=== PATIENT | female | born 1955 | race American Indian/Alaskan Native ===

== ENCOUNTER 2019-07-15 09:04 | Day surgery (SDC) | payer OTHER ==
[~2019-07-15 09:04] MED LIST: SODIUM CHLORIDE 0.9% 1000 ML 1,000 ML IV SCH
--- NOTE | 2019-07-15 11:09 | Anesthesia Day of Surgery ---
Anesthesia Day of Surgery - Day of Surgery Patient Examined: Yes Patient H&P Reviewed: Yes Patient is NPO: Yes
--- NOTE | 2019-07-15 11:10 | Anesthesia Consultation ---
Anesthesia Consult and Med Hx - Airway Anesthetic Teeth Evaluation: Poor, Chipped ROM Head & Neck: Adequate Mental/Hyoid Distance: Adequate Mallampati Class: Class III - Pulmonary Exam CTA: Yes - Cardiac Exam Cardiac Exam: RRR - Pre-Operative Health Status ASA Pre-Surgery Classification: ASA2 - Cardiovascular System Hx Hypertension: Yes
[2019-07-15] MEDS ORDERED: propofoL 200 MG/20 ML VIAL IV ONE (13:15)
--- NOTE | 2019-07-15 13:37 | Short Stay Summary ---
Short Stay Documentation Date of service: 07/15/19 Narrative H&P: Patient presents for outpatient colonoscopy for colon cancer screening - History H&P: obtained from office Past Medical History: other (no changes) Past Surgical History: No surgical history Social history: no significant social history - Allergies and Medications Current Medications: Allergies No Known Allergies Allergy (Verified 07/10/19 11:58) Home Medications Medication Instructions Recorded Confirmed Last Taken Type Zantac 1 tab PO DAILY 07/14/19 07/14/19 Unknown History Hydrochlorothiazide 12.5 mg PO DAILY 07/15/19 07/15/19 07/14/19 History Lisinopril 1 tab PO DAILY 07/15/19 07/15/19 07/15/19 History Simvastatin 40 mg PO DAILY 07/15/19 07/15/19 07/13/19 History Active Medications Sodium Chloride (Nacl 0.9% 1000 Ml) 1,000 mls @ 50 mls/hr IV DIRECT KEANU Last Admin: 07/15/19 11:19 Dose: 50 mls/hr Documented by: - Physical exam General appearance: no acute distress Lungs: Clear to auscultation Gastrointestinal: normal - Brief post op/procedure progress note Date of procedure: 07/15/19 Pre-op diagnosis: screening for colorectal cancer Post-op diagnosis: same (colon polyps x 2, diverticulosis) Procedure: Colonoscopy with snare polypectomy and biopsy Anesthesia: MAC Findings: Colon polyp x 2 removed diverticulosis Surgeon: JER MAHONEY Estimated blood loss: minimal Pathology: list (Jar A - ascending colon polyp, Jar B - descending colon polyp) Specimen disposition: to lab Condition: stable - Disposition Condition at discharge: Good Disposition: DC-01 TO HOME OR SELFCARE Short Stay Discharge Plan Follow up with: RUBÉN JACKSON JR, MD [Primary Care Provider] - 7 Days
--- NOTE | 2019-07-15 13:38 | Operative Report ---
Operative Report Operative Report: Colonoscopy Procedure Note with snare polypectomy and biopsy Date of procedure: 07/15/2019 Endoscopist: Feng Anderson Pre-op diagnosis/indication: Screening for colorectal cancer Post-op diagnosis: Colon polyps x 2 removed, diverticulosis MEDICATIONS: MAC COMPLICATIONS: No immediate complications ESTIMATED BLOOD LOSS: Minimal DESCRIPTION OF PROCEDURE: After consent was obtained, the patient was placed in the left lateral decubitis position. The olympus colonoscope was inserted into the rectum and advanced to the cecum without difficulty. The patient tolerated the procedure well. The views of the mucosa were good. The quality of prep was good. The patients vital signs were monitored continuously throughout the procedure. FINDINGS: There was an ~4 mm sessile polyp in the ascending colon. The polyp was removed with cold snare polypectomy and retrieved. There was an ~2 mm sessile polyp in the descending colon. The polyp was removed with cold biopsy forceps and retrieved. There were a few small diverticula in the left side of the colon. IMPRESSION: 1. Colon polyps x 2 (one removed with cold snare, and other removed with cold biopsy forceps) as above 2. Diverticulosis RECOMMENDATIONS: -follow up pathology -high fiber diet daily -repeat colonoscopy for surveillance in 5 years
[2019-07-15 14:12] VITALS: BP 136/85
--- NOTE | 2019-07-15 14:39 | Post Anesthesia Evaluation ---
- Post Anesthesia Evaluation Patient Participated: Yes Airway Patent: Yes Stable Respiratory Function: Yes Nausea/Vomiting: No Temp > 96.8F: Yes Pain Manageable: Yes Adequeate Hydration: Yes Anesthesia Complications: No Block Receding Appropriately: Not Applicable Patient on Ventilator: No
== END 2019-07-15 09:05 | disposition home or self-care (01) ==
LOC: GIO 09:04
PROVIDERS: ATTEND Internal Medicine Gastroenterology
DX: Z12.11 Encounter for screening for malignant neoplasm of colon (principal); D12.2 Benign neoplasm of ascending colon; K57.30 Diverticulosis of large intestine without perforation or abscess without bleeding; I10 Essential (primary) hypertension; F41.9 Anxiety disorder, unspecified; F32.9 Major depressive disorder, single episode, unspecified; Z79.899 Other long term (current) drug therapy
CPT/HCPCS: 45380; 45385; 88302; J2704; J7030; 88305